=== PATIENT | female | born 1960 | race Caucasian/White ===

== ENCOUNTER 2018-01-14 17:12 | Emergency (ER) | payer MEDICARE, OTHER, MEDICAID ==
[2018-01-14] MEDS: IBUPROFEN 200 MG TAB PO (17:58)
[2018-01-14] MEDS: HYDROCODONE/APAP (5/325) TAB PO (17:58)
== END 2018-01-14 19:33 | disposition home or self-care (01) ==
LOC: FTE 17:12
DX: S80.01XA Contusion of right knee, initial encounter (principal); E11.9 Type 2 diabetes mellitus without complications; R07.9 Chest pain, unspecified; W01.0XXA Fall on same level from slipping, tripping and stumbling without subsequent striking against object, initial encounter; Y92.9 Unspecified place or not applicable; Z96.651 Presence of right artificial knee joint
CPT/HCPCS: 73562; 93005; 99284-25